=== PATIENT | male | born 1990 | race Caucasian/White ===

== ENCOUNTER 2024-12-21 08:05 | Emergency (ER) | payer MEDICAID, SELFPAY ==
[2024-12-21 08:07] VITALS: BMI 47.9
[2024-12-21 08:20] VITALS: BP 131/79; PULSE 100; RESP 18; TEMP 37.2; O2SAT 97
--- NOTE | 2024-12-21 08:28 | XR_ITS ---
Examination: CT abdomen and pelvis without contrast. Coronal 3-D reconstructions. Sagittal 2-D reconstructions. Date and time of exam:December 21, 2024, 0926 hours INDICATIONS: Left upper abdominal pain beginning 5 days ago CTDI: vol (mGy): 22.9 DLP: (mGycm): 1710 Technique: Axial images of the abdomen have been obtained, 3 mm slice thickness Intravenous contrast material has not been administered. Low dose protocols were performed. One or more of the following dose reduction techniques were used; automated exposure control, adjustment of the mA and/or KV according to patient size, use of iterative reconstruction technique. Findings: No focal liver lesions No gallstones Mild splenomegaly AP dimension 14 cm No pancreatic or adrenal mass. No renal or ureteral calculi, no hydronephrosis Aorta normal size 4 mm fat-containing above the hernia Tiny lymph nodes in the right lower mesentery Normal appendix No bowel obstruction No diverticulitis Normal seminal vesicles No prostatomegaly Contracted urinary bladder The osseous structures are intact IMPRESSION: Mild splenomegaly, AP dimension 14 cm No renal or ureteral calculi, no hydronephrosis Normal appendix No bowel obstruction diverticulitis or free air
--- NOTE | 2024-12-21 08:28 | XR_ITS ---
Examination: Abdomen sonogram, Limited Date and time of exam: December 21, 2024 0836 hours INDICATIONS: Left upper abdominal pain and abdominal swelling beginning 5 days ago Technique: Real-time anand scale transabdominal sonographic images of the upper abdomen obtained. Findings: No cystic or solid mass in the left upper abdomen noted IMPRESSION: No cystic or solid mass in the left upper abdomen
[2024-12-21 09:33] LABS: Basophils # (Auto) 0.1 Thou/mm3 (0.0-0.2); Basophils % (Auto) 1 % (0-2.5); Eosinophils # (Auto) 0.4 Thou/mm3 (0.0-0.5); Eosinophils % (Auto) 5 % (0-10); Hemoglobin 15.9 g/dL (13.5-16.0); Immature Granulocytes % (Auto) 0 % (0-0); Immature Granulocytes Auto 0.02 Thou/mm3 (0.00-0.00); Lymphocytes # (Auto) 2.9 Thou/mm3 (1.0-4.8); Lymphocytes % (Auto) 32 % (10-50); Mean Corpuscular HGB Conc 35.3 g/dl (31.0-37.0); Mean Corpuscular Hemoglobin 30.4 pg (25.0-35.0); Mean Corpuscular Volume 86 fL (80-100); Monocytes # (Auto) 0.6 Thou/mm3 (0.0-0.8); Monocytes % (Auto) 7 % (0-12); Neutrophils % (Auto) 55 % (37-80); Nucleated Red Blood Cell % 0 /100 WBC (0); Platelet Count 209 Thou/mm3 (140-440); RDW Standard Deviation 39.3 fL (35.1-43.9); Red Blood Count 5.23 Miln/mm3 (4.50-5.90); White Blood Count 9.1 Thou/mm3 (3.8-10.6)
[2024-12-21 10:03] LABS: Alanine Aminotransferase 88 U/L (10-49); Albumin, Serum 4.3 gm/dL (3.5-5.0); Albumin/Globulin Ratio 1.7 (1.2-2.2); Alkaline Phosphatase 69 U/L (46-116); Anion Gap 6 (7-16); Aspartate Amino Transferase 39 U/L (0-34); BUN/Creatinine Ratio 9 Ratio (12-20); Bilirubin,Total 0.6 mg/dL (0.3-1.2); Blood Urea Nitrogen 11 mg/dL (9-23); Carbon Dioxide 27.8 mMol/L (20.0-31.0); Chloride 105 mMol/L (98-107); Creatinine (Component) 1.2 mg/dL (0.6-1.3); Estimated Creatinine Clearance 138.5 mL/min (>60); Globulin 2.6 gm/dL (2.3-3.5); Glucose 91 mg/dL (74-106); Lipase 43 U/L (12-53); Osmolality,Calculated 276 (275-295); Potassium 4.7 mMol/L (3.4-5.1); Sodium 139 mMol/L (136-145); Total Protein 6.9 gm/dL (5.7-8.2); Troponin I < 0.002 ng/mL (0.0-0.045); eGFR > 60 See Note
--- NOTE | 2024-12-21 11:17 | EDNOTE_ITS ---
<Statement entered by Beckie James MD - 12/21/24 13:55> As co-signing physician, I was present and available for consult prn. I concur with the plan and care as documented by the midlevel provider. ED General RME/HPI General Chief complaint: General Adult/Misc Complain Stated complaint: L) CHEST MUSC PUFFY, SOME CRAMPING Time Seen by Provider: 12/21/24 08:08 Arrival date/time: 12/21/24 08:05 34-year-old male presents to the emergency department today complains of left upper abdominal pain abdominal swelling left upper abdomen. Patient for symptoms ongoing for the last 5 days. Patient's daughter is being seen as a patient as well for an unrelated complaint feels like he just wanted to get checked out while he was here he states Limitations: no limitations Related Data Home Medications ?Medication ?Instructions ?Recorded ?Confirmed amlodipine 5 mg tablet mg 10/31/23 10/31/23 lisinopril 20 mg tablet mg 10/31/23 lisinopril 20 mg tablet mg 10/31/23 Previous Rx's ?Medication ?Instructions ?Recorded diphenhydramine HCl 25 mg tablet 50 mg (2 x 25 mg) PO QID PRN 01/10/21 (Benadryl Allergy) allergic reaction #30 tabs epinephrine 0.3 mg/0.3 mL 0.3 ml subcut .once PRN 12/23 06/14 injection, auto-injector hypersensitivity reaction #2 ea ibuprofen 800 mg tablet 800 mg PO TID PRN pain #30 t abs 07/23/23 Allergies Allergy/AdvReac Type Severity Reaction Status Date / Time No Known Allergies Allergy Verified 12/21/24 08:10 Review of Systems Review of Systems Systems Reviewed: All systems reviewed, normal except as documented Constitutional Constitutional: Reports system reviewed and no additional complaints, except as documented, Denies fever(s) and Denies headache(s) Eyes Eyes: Reports system reviewed and no additional complaints, except as documented and Denies blurry vision ENT Ears, Nose, Mouth, and Throat: Reports system reviewed and no additional complaints, except as documented, Denies headache(s), Denies nasal congestion and Denies nasal discharge Cardiovascular Cardiovascular: Reports system reviewed and no additional complaints, except as documented, Denies chest pain and Denies dyspnea Respiratory Respiratory: Reports system reviewed and no additional complaints, except as documented, Denies chest congestion, Denies cough and Denies dyspnea Gastrointestinal Gastrointestinal: Reports system reviewed and no additional complaints, except as documented, Denies abdominal pain and Reports other (Left side abdominal pain) Integumentary/Breasts Skin/Breast: Reports system reviewed and no additional complaints, except as documented and Denies rash Neurologic Neurologic: Reports system reviewed and no additional complaints, except as documented, Reports as per HPI and Denies headache(s) Past Medical History Past Medical History CARDIAC: Negative Congestive Heart Failure or Hypertension RESPIRATORY: Positive Chronic Obstructive Pulmonary Disease (COPD) GENITOURINARY: Negative Renal Disease ENDOCRINE: Negative Diabetes Mellitus Type 1 or Diabetes Mellitus Type 2 Social History SMOKING STATUS: Former smoker ED Exam General Limitations: Present no limitations General appearance: Present alert and in no apparent distress Head Head exam: Present atraumatic Eye Eye exam: Present normal appearance, PERRL and EOMI ENT ENT exam: Present normal exam, normal oropharynx and mucous membranes moist Neck Neck exam: Present normal inspection, full ROM and trachea midline Chest Chest inspection: Present normal inspection and symmetric chest wall rise Respiratory Respiratory exam: Present normal lung sounds bilaterally Cardiovascular Cardiovascular exam: Present regular rate, normal rhythm and normal heart sounds Abdominal Exam Abdominal exam: Present soft, tenderness (Left upper abdominal pain) and normal bowel sounds; Absent distention, guarding, rebound or rigidity Extremities Exam Extremities exam: Present normal inspection and full ROM Back Exam Back exam: Present normal inspection and full ROM Neurological Exam Neurological exam: Present alert, oriented X3 and CN II-XII intact Psychiatric Psychiatric exam: Present normal affect and normal mood Skin Skin exam: Present warm, dry, intact and normal color Course Quality Measures none Orders Category Date Time Status CT abdomen pelvis wo con Stat Exams 12/21/24 08:28 Completed US abdomen limited Stat Exams 12/21/24 08:28 Completed CBC Stat Lab 12/21/24 09:20 Completed Comprehensive Metabolic Panel Stat Lab 12/21/24 09:20 Completed Lipase Stat Lab 12/21/24 09:20 Completed Troponin I Stat Lab 12/21/24 09:20 Completed Vital Signs Vital signs: Vital Signs Temperature 99 F 12/21/24 08:20 Pulse Rate 100 12/21/24 08:20 Respiratory Rate 18 12/21/24 08:20 Blood Pressure 131/79 H 12/21/24 08:20 Pulse Oximetry (%) 97 12/21/24 08:20 Oxygen Delivery Method Room Air 12/21/24 08:20 O2 saturation 97% room air within normal notes MDM Patient data External records reviewed:: [facility] previous records Clinical information provided by:: patient Social determinants that could affect healthcare access:: none Patient has the following chronic illnesses:: History How is presenting disease/condition affected by chronic disease/condition?: u neffected by Evaluation data The following diagnostics were reviewed and interpreted by me:: lab results and radiology exam(s) Lab and/or radiology exams considered but not ordered:: Labs radiology obtain Interpretation Summary: Reviewed by me Medications Medications considered but not ordered:: Given Medication administrations:: Given Consultations Consultation(s) initiated? (list below): No Diagnosis Differential Diagnosis ED Complaint MDM: Lipoma, abscess, splenomegaly, pancreatitis, obesity Most likely diagnosis given after review of the tests above:: Abdominal pain Admission Indicated Admission indicated?: not indicated Explain why admission is indicated or not indicated:: No criteria Admission Request Was there a request for admission?: No Disposition Plan Disposition Plan: Discharge Discharge Attestation Discharge Attestation: The patient and all family members were given an opportunity to ask questions and understood the discharge instructions. Discharge instructions specifically effects, indications for sooner follow up or return to the emergency department, and the expected course of current diagnosis. Patient condition: Stable Medical Decision Making [facility] Narrative MDM Narrative: 34-year-old male presents to the emergency department today complains of left upper abdominal pain abdominal swelling left upper abdomen. Patient for symptoms ongoing for the last 5 days. Patient's daughter is being seen as a patient as well for an unrelated complaint feels like he just wanted to get checked out while he was here he states On exam patient well-appearing patient does not appear ill or toxic lab work as well as imaging obtained no acute emergent findings noted On exam I do not appreciate acute abnormality Patient discharged home in no distress to follow-up with primary care doctor in the next 24 to 48 hours and for any worsening symptoms to return to the ER immediately Differential Diagnosis Differential Diagnosis: Lipoma, abscess, splenomegaly, pancreatitis, obesity Medical Records Medical records reviewed: Yes I reviewed the patient's medical records. Lab Data Lab results reviewed: Yes I reviewed the patient's lab results. 12/21/24 09:20 12/21/24 09:20 Labs: Lab Results 12/21/24 Range/Units 09:20 WBC 9.1 (3.8-10.6) Thou/mm3 RBC 5.23 (4.50-5.90) Miln/mm3 Hgb 15.9 (13.5-16.0) g/dL Hct 45.0 (41.0-53.0) % MCV 86 (80-100) fL MCH 30.4 (25.0-35.0) pg MCHC 35.3 (31.0-37.0) g/dl RDW Std Deviation 39.3 (35.1-43.9) fL Plt Count 209 (140-440) Thou/mm3 Neut % (Auto) 55 (37-80) % Lymph % (Auto) 32 (10-50) % [place] % (Auto) 7 (0-12) % Eos % (Auto) 5 (0-10) % Baso % (Auto) 1 (0-2.5) % Neut # (Auto) 5.0 (1.8-7.7) Thou/mm3 Lymph # (Auto) 2.9 (1.0-4.8) Thou/mm3 [place] # (Auto) 0.6 (0.0-0.8) Thou/mm3 Eos # (Auto) 0.4 (0.0-0.5) Thou/mm3 Baso # (Auto) 0.1 (0.0-0.2) Thou/mm3 Immature Gran # (Auto) 0.02 H (0.00-0.00) Thou/mm3 Absolute Nucleated RBC 0.00 (0.00-0.00) Thou/mm3 Immature Gran % 0 (0-0) % Nucleated RBC % 0 (0) /100 WBC Sodium 139 (136-145) mMol/L Potassium 4.7 (3.4-5.1) mMol/L Chloride 105 (98-107) mMol/L Carbon Dioxide 27.8 (20.0-31.0) mMol/L Anion Gap 6 L (7-16) BUN 11 (9-23) mg/dL Creatinine 1.2 (0.6-1.3) mg/dL Estim Creat Clear Calc 138.5 (>60) mL/min eGFR > 60 (60 - ) See Note BUN/Creatinine Ratio 9 L (12-20) Ratio Glucose 91 (74-106) mg/dL Calculated Osmolality 276 (275-295) Calcium 9.0 (8.3-10.6) mg/dL Corrected Calcium 9.0 (8.5-10.1) mg/dL Total Bilirubin 0.6 (0.3-1.2) mg/dL AST 39 H (0-34) U/L ALT 88 H (10-49) U/L Alkaline Phosphatase 69 (46-116) U/L Troponin I < 0.002 (0.0-0.045) ng/mL Total Protein 6.9 (5.7-8.2) gm/dL Albumin 4.3 (3.5-5.0) gm/dL Globulin 2.6 (2.3-3.5) gm/dL Albumin/Globulin Ratio 1.7 (1.2-2.2) Lipase 43 (12-53) U/L Radiology Data Radiology results reviewed: Yes I reviewed the patient's radiology results. Discharge Plan Plan Patient Disposition: HOME (Self Care) Disposition Comment: Stable Prescriptions/Referrals Prescriptions/Med Rec: No Action diphenhydramine HCl [Benadryl Allergy] 25 mg tablet 50 mg PO QID PRN (Reason: allergic reaction) Qty: 30 0RF epinephrine 0.3 mg/0.3 mL auto-injector 0.3 ml subcut .once PRN (Reason: hypersensitivity reaction) Qty: 2 0RF ibuprofen 800 mg tablet 800 mg PO TID PRN (Reason: pain) Qty: 30 0RF lisinopril 20 mg tablet Patient Comments: TAKE 1 TABLET BY MOUTH EVERY DAY lisinopril 20 mg tablet Patient Comments: TAKE 1 TABLET BY MOUTH EVERY DAY amlodipine 5 mg tablet Patient Comments: TAKE 1 TABLET BY MOUTH EVERY DAY FOR BLOOD PRESSURE Referrals: Erwin Urbina MD [Primary Care Provider] - 12/23/24 Problem List Clinical Impression: Abdominal pain Patient/Caregiver Discharge Instructions Education Materials: Abdominal Pain Additional Instructions: Please follow up with your primary care doctor in the next 24-48hrs for any worsening symptoms return here immediately Print Language: Latvian Stand Alone Forms: Matilde Award Info., Patient Portal Info Letter IVONNE/PITO Supervising Physician IVONNE/PITO Supervising Physician: Dr JAMES
== END 2024-12-21 10:47 | disposition home or self-care (01) ==
PROVIDERS: Nurse Practitioner Primary Care; Emergency Provider Emergency Medicine; PCP Internal Medicine
DX: R10.12 Left upper quadrant pain (principal); R19.02 Left upper quadrant abdominal swelling, mass and lump
CPT/HCPCS: 36415; 74176; 76705; 80053; 83690; 84484; 85025; 99284

== ENCOUNTER 2025-09-01 08:41 | Emergency (ER) | payer MEDICAID, SELFPAY ==
[2025-09-01 09:01] VITALS: BP 143/90; PULSE 93; RESP 19; TEMP 36.8; O2SAT 98; BMI 34.9
--- NOTE | 2025-09-01 09:51 | XR_ITS ---
Examination: Foot, left, 3 views Technique: AP, oblique, lateral views foot, 3 views Date and time of exam: September 01, 2025, 1003 hours INDICATIONS: Patient fell 2 days ago with injury to the foot, foot pain FINDINGS: No acute fracture No dislocation IMPRESSION: No acute fracture
--- NOTE | 2025-09-01 09:51 | XR_ITS ---
Examination: Tibia-Fibula, left, 2 views Technique: Tibia-fibula AP lateral 2 views Date and time of exam: September 01, 2025, 1006 hours INDICATIONS: Patient fell 2 days ago with injury to the lower leg, lower leg pain. FINDINGS: No acute fracture No dislocation No foreign body IMPRESSION: No acute fracture
--- NOTE | 2025-09-01 09:51 | XR_ITS ---
EXAMINATION: Ankle, left 3 views. Technique: Ankle AP, oblique, lateral 3 views Date and time of exam: September 01, 2025, 1003 hours INDICATIONS: Patient fell today with injury to the ankle, ankle pain. FINDINGS: Lateral malleolar soft tissue swelling Tiny old appearing bone densities at the fibular tip No definite acute ankle fracture IMPRESSION: No definite acute ankle fracture
--- NOTE | 2025-09-01 09:53 | EDNOTE_ITS ---
Lower Extremity Injury RME/HPI General Chief Complaint: Ankle/Foot Injury Stated Complaint: L) ANKLE INJURY Time Seen by Provider: 09/01/25 09:27 Arrival date/time: 09/01/25 08:41 RME / HPI RME / HPI Narrative: 35-year-old male with a past medical history of left ankle injuries presents to the ER complaining of left ankle pain x 2 days after stepping in a pothole. Denies any fever, nausea, vomiting, numbness, tingling, weakness. Related Data Home Medications ?Medication ?Instructions ?Recorded ?Confirmed amlodipine 5 mg tablet mg 10/31/23 10/31/23 lisinopril 20 mg tablet mg 10/31/23 lisinopril 20 mg tablet mg 10/31/23 Previous Rx's ?Medication ?Instructions ?Recorded diphenhydramine HCl 25 mg tablet 50 mg (2 x 25 mg) PO QID PRN 01/10/21 (Benadryl Allergy) allergic reaction #30 tabs epinephrine 0.3 mg/0.3 mL 0.3 ml subcut .once PRN 12/23 06/14 injection, auto-injector hypersensitivity reaction #2 ea ibuprofen 800 mg tablet 800 mg PO TID PRN pain #30 t abs 07/23/23 Allergies Allergy/AdvReac Type Severity Reaction Status Date / Time No Known Allergies Allergy Verified 09/01/25 08:45 ED Exam Narrative Physical exam: Constitutional: Vital Signs Reviewed. Well appearing. No acute distress. Not toxic appearing. Head: Normocephalic, atraumatic. Eyes: Conjunctiva clear. ENT: Mucous membranes moist. Neck: Trachea midline. Normal range of motion. No nuchal rigidity. Respiratory: Normal effort. No respiratory distress or accessory muscle use. Neuro: Alert and oriented. Speech normal. No focal gross motor or sensory deficits observed. Skin: Warm, dry, normal color. Extremity: Positive tenderness to palpation, edema, ecchymosis noted to the dorsal lateral aspect of his foot and lateral aspect of his ankle. Mild limited range of motion and strength 4+ out of 5 secondary to pain. No erythema, no heat. Dorsalis pedis pulse 2+ regular rate and rhythm. Psych: Pleasant. Normal affect. Cooperative. Course Quality Measures none Orders Category Date Time Status Crutches .NOW Care 09/01/25 09:51 Active Splint / Immobilizer STAT Care 09/01/25 09:51 Active XR ankle comp LT min 3V Stat Exams 09/01/25 09:51 Completed XR foot comp LT min 3V Stat Exams 09/01/25 09:51 Completed XR tibia fibula LT 2V Stat Exams 09/01/25 09:51 Completed Ketorolac Inj [Toradol Inj] Med 09/01/25 09:51 Discontinued 30 mg IM X1 ONE Vital Signs Vital signs: Vital Signs Temperature 98.3 F 09/01/25 09:01 Pulse Rate 93 09/01/25 09:01 Respiratory Rate 19 09/01/25 09:01 Blood Pressure 143/90 H 09/01/25 09:01 Pulse Oximetry (%) 98 09/01/25 09:01 Oxygen Delivery Method Room Air 09/01/25 09:01 Extremity Injury, Lower MDM Narrative MDM Narrative:: MDM: Concern for left ankle sprain versus strain versus occult fracture or dislocation No infectious etiology and low suspicion for septic arthritis given lack of ci rcumferential erythema, heat, irritable joint as patient has a fairly good mid range motion but is painless Extremity remains distally neurovascular intact with soft compartments X-ray without gross fracture or bony malalignment there is a tiny os located fragment just distal to the distal fibula which may represent an avulsion fracture Plan for RICE therapy, CAM Walker boot, crutches, nonweightbearing, pain and nausea management as needed f/u with pmd and ortho in 1-2 days, strict ER return precautions Patient data External records reviewed:: None Clinical information provided by:: patient Social determinants that could affect healthcare access:: none Patient has the following chronic illnesses:: As noted How is presenting disease/condition affected by chronic disease/condition?: uneffected by Evaluation data The following diagnostics were reviewed and interpreted by me:: radiology exam(s) Lab and/or radiology exams considered but not ordered:: Additional Labs and radiology considered, but not ordered as they were not clinically indicated at this time. Interpretation Summary: As noted Medications / Prescriptions Medications or Prescriptions considered but not ordered:: I ordered medications based on the patient?s clinical needs and assessment, as documented in the chart. For medications not prescribed, they were not indicated for the patient's current condition, and I determined they were unnecessary at this time to avoid potential risks or complications. Medication administrations:: Medication Administration History Discontinued Medications Ketorolac Tromethamine (Ketorolac Inj 30 Mg/Ml Vial) 30 mg IM X1 ONE Stop: 09/01/25 09:52 Last Admin: 09/01/25 10:04 Dose: 30 mg Documented By: As noted Consultations Consultation(s) initiated? (list below): No Diagnosis Most likely diagnosis given after review of the tests above:: As noted Admission Indicated Admission indicated?: not indicated Admission Request Was there a request for admission?: No Disposition Plan Disposition Plan: Discharge Discharge Attestation Discharge Attestation: The patient and all family members were given an opportunity to ask questions and understood the discharge instructions. Discharge instructions specifically effects, indications for sooner follow up or return to the emergency department, and the expected course of current diagnosis. Patient condition: Stable Discharge Plan Plan Patient Disposition: HOME (Self Care) Patient condition on transfer: Stable Prescriptions/Referrals Prescriptions/Med Rec: No Action diphenhydramine HCl [Benadryl Allergy] 25 mg tablet 50 mg PO QID PRN (Reason: allergic reaction) Qty: 30 0RF epinephrine 0.3 mg/0.3 mL auto-injector 0.3 ml subcut .once PRN (Reason: hypersensitivity reaction) Qty: 2 0RF ibuprofen 800 mg tablet 800 mg PO TID PRN (Reason: pain) Qty: 30 0RF lisinopril 20 mg tablet Patient Comments: TAKE 1 TABLET BY MOUTH EVERY DAY lisinopril 20 mg tablet Patient Comments: TAKE 1 TABLET BY MOUTH EVERY DAY amlodipine 5 mg tablet Patient Comments: TAKE 1 TABLET BY MOUTH EVERY DAY FOR BLOOD PRESSURE Referrals: Erwin Singh MD [Primary Care Provider] - In 1 week Sean Hsu MD [Physician, Orthopedics] - In 1 week Problem List Clinical Impression: Ankle sprain and strain Impression comment: Can not exclude avulsion fracture or occult fracture of ankle Patient/Caregiver Discharge Instructions Education Materials: ED Ankle Sprain (Adult) Additional Instructions: Follow up with your primary medical doctor within 24 hours. Return to the Emergency Room immediately for any new, worsening, continuing symptoms or any concerns at all. Return to the Emergency Room within 24 hours if you are unable to follow up with your primary medical doctor within 24 hours. Follow-up with an orthopedic doctor within 2 to 3 days as well. Print Language: Spanish Stand Alone Forms: Matilde Award Info., Patient Portal Info Letter PA/EMERGENCY SERVICES DISPATCHER Supervising Physician PA/EMERGENCY SERVICES DISPATCHER Supervising Physician: Dr. Boyle
[2025-09-01] MEDS: KETOROLAC INJ 30 MG/ML VIAL IM (10:04)
== END 2025-09-01 13:45 | disposition home or self-care (01) ==
PROVIDERS: Emergency Provider Physician Assistant; PCP Internal Medicine
DX: S93.402A Sprain of unspecified ligament of left ankle, initial encounter (principal); S96.912A Strain of unspecified muscle and tendon at ankle and foot level, left foot, initial encounter; S99.922A Unspecified injury of left foot, initial encounter; S89.92XA Unspecified injury of left lower leg, initial encounter; X58.XXXA Exposure to other specified factors, initial encounter
CPT/HCPCS: 73590; 73610; 73630; 96372; 99283; J1885